=== PATIENT | male | born 1995 | race Caucasian/White ===

== ENCOUNTER 2019-06-19 10:04 | Emergency (ER) | payer OTHER ==
--- NOTE | 2019-06-19 10:17 | EDM.PDOC ---
ED HPI GENERAL MEDICAL PROBLEM - General Chief Complaint: Upper Extremity Injury/Pain Stated Complaint: LEFT SHOULDER PAIN Time Seen by Provider: 06/19/19 10:17 Source of Information: Reports: Patient History Limitations: Reports: No Limitations - History of Present Illness INITIAL COMMENTS - FREE TEXT/NARRATIVE: HISTORY AND PHYSICAL: History of present illness: Patient is a 23-year-old male presents to the ED with complaint of left shoulder pain. He states he fell landing directly on his left shoulder and thinks he dislocated it. He states his friend unsuccessfully tried to put it in. He denies head injury or LOC. Review of systems: As per history of present illness and below otherwise all systems reviewed and negative. Past medical history: As per history of present illness and as reviewed below otherwise noncontributory. Surgical history: As per history of present illness and as reviewed below otherwise noncontributory. Social history: No reported history of drug or alcohol abuse. Family history: As per history of present illness and as reviewed below otherwise noncontributory. Physical exam: General: Patient sitting comfortably in no acute distress and nontoxic appearing HEENT: Atraumatic, normocephalic, pupils reactive, negative for conjunctival pallor or scleral icterus, mucous membranes moist, throat clear, neck supple, nontender, trachea midline. No meningeal signs. Lungs: Clear to auscultation, breath sounds equal bilaterally, chest nontender. Heart: S1S2, regular, negative for clicks, rubs, or overt murmur. Abdomen: Soft, nondistended, nontender. Negative for masses or hepatosplenomegaly. Negative for costovertebral tenderness. No rigidity, rebound , guarding. Pelvis: Stable nontender. Genitourinary: Deferred. Rectal: Deferred. Extremities: Left shoulder is squared off, patient is unable to bring left hand to right shoulder. Atraumatic, negative for cords or calf pain. Neurovascular unremarkable. Neuro: Awake, alert, oriented. Cranial nerves II through XII unremarkable. Cerebellum unremarkable. Motor and sensory unremarkable throughout. Exam nonfocal. Notes: x-karishma shows anterior shoulder dislocation. Shoulder was successfully reduced using traction/countertraction. Patient tolerated well. Diagnostics: pre and post reduction left shoulder x-ray Therapeutics: Shoulder immobilizer Prescriptions: Impression: Left shoulder dislocation Plan: Wear immobilizer as instructed Follow up with orthopedics, please call the number provided to schedule an appointment Return to ED as needed as discussed Definitive disposition and diagnosis as appropriate pending reevaluation and review of above. left shoulder Pain Score (Numeric/FACES): 7 - Related Data Allergies Allergy/AdvReac Type Severity Reaction Status Date / Time No Known Allergies Allergy Verified 06/19/19 10:08 Home Meds: Home Meds . [No Known Home Meds] 06/19/19 [History] Past Medical History - Past Health History Medical/Surgical History: Denies Medical/Surgical History - Past Surgical History GI Surgical History: Reports: Hernia Repair/Other Social & Family History - Family History Family Medical History: Noncontributory - Tobacco Use Smoking Status *Q: Current Every Day Smoker Years of Tobacco use: 1 Packs/Tins Daily: 7 - Recreational Drug Use Recreational Drug Use: No Review of Systems - Review of Systems Review Of Systems: ROS reveals no pertinent complaints other than HPI. ED EXAM, GENERAL - Physical Exam Exam: See Below (see dictation) Course - Vital Signs Last Recorded V/S: Last Vital Signs Temp 96.4 F 06/19/19 10:06 Pulse 73 06/19/19 10:06 Resp 18 06/19/19 10:06 BP 125/74 06/19/19 10:06 Pulse Ox 98 06/19/19 10:06 - Orders/Labs/Meds Orders: Active Orders 24 hr Category Date Time Status Shoulder 1V Lt [CR] Stat Exams 06/19/19 11:06 Ordered Departure - Departure Time of Disposition: 11:21 Disposition: Home, Self-Care 01 Condition: Good Clinical Impression: Dislocation of left shoulder joint - Discharge Information Referrals: PCP,None [Primary Care Provider] - Forms: ED Department Discharge Additional Instructions: The following information is given to patients seen in the emergency department who are being discharged to home. This information is to outline your options for follow-up care. We provide all patients seen in our emergency department with a follow-up referral. The need for follow-up, as well as the timing and circumstances, are variable depending upon the specifics of your emergency department visit. If you don't have a primary care physician on staff, we will provide you with a referral. We always advise you to contact your personal physician following an emergency department visit to inform them of the circumstance of the visit and for follow-up with them and/or the need for any referrals to a consulting specialist. The emergency department will also refer you to a specialist when appropriate. This referral assures that you have the opportunity for follow-up care with a specialist. All of these measure are taken in an effort to provide you with optimal care, which includes your follow-up. Under all circumstances we always encourage you to contact your private physician who remains a resource for coordinating your care. When calling for follow-up care, please make the office aware that this follow-up is from your recent emergency room visit. If for any reason you are refused follow-up, please contact the [facility] Emergency Department at and asked to speak to the emergency department charge nurse. [facility] - [facility] Professional Building [address] [place] [address], [address] [place] [address] [address] Rico, Orthopedist [facility] [address] [place] [address] Dr Crum - Dr Cruz - Dr Banerjee [facility] [address] [place] [address] [facility] [address] [place] [address] Wear immobilizer as instructed Follow up with orthopedics, please call the number provided to schedule an appointment Return to ED as needed as discussed - My Orders Last 24 Hours: My Active Orders 06/19/19 11:06 Shoulder 1V Lt [CR] Stat - Assessment/Plan Last 24 Hours: My Active Orders 06/19/19 11:06 Shoulder 1V Lt [CR] Stat
--- NOTE | 2019-06-19 10:57 | CR ---
Left shoulder: Three views of the left shoulder were obtained. Comparison: No previous shoulder study. Dislocated left shoulder is seen in an anterior direction. No discrete fracture or other abnormality is appreciated. Impression: Anterior left shoulder dislocation. Diagnostic code #5 MTDD
--- NOTE | 2019-06-19 12:01 | CR ---
Left shoulder: Single AP view of the left shoulder was obtained. Comparison: Previous left shoulder study performed earlier on same day (10:36 AM ). Previous dislocation shows reduction. No discrete fracture or other abnormality is seen. Impression: Previous dislocation shows evidence of reduction. Diagnostic code #1 MTDD
== END 2019-06-19 12:01 | disposition home or self-care (01) ==
LOC: MW.ED 10:04
DX: S43.005A Unspecified dislocation of left shoulder joint, initial encounter (principal); F17.210 Nicotine dependence, cigarettes, uncomplicated; W19.XXXA Unspecified fall, initial encounter
CPT/HCPCS: 73020-26-LT; 73020-LT; 73030-26-LT; 73030-LT; 99283-25